=== PATIENT | male | born 1955 | race Caucasian/White ===

== ENCOUNTER 2023-12-31 11:55 | Emergency (ER) | payer MEDICARE ==
[2023-12-31] MEDS ORDERED: Sodium Chloride 0.9% 10 ML Syringe FLUSH PRN ×2 (12:20→13:49)
[2023-12-31 12:37] LABS: BASOPHILS ABSOLUTE AUTO 0.1 K/mm3 (0.0-0.2); BASOPHILS PERCENT AUTO 1.9 % (0.0-1.0); EOSINOPHILS ABSOLUTE AUTO 0.2 K/mm3 (0.0-0.4); EOSINOPHILS PERCENT AUTO 3.6 % (0.0-6.0); HEMATOCRIT 48.3 % (42.0-52.0); HEMOGLOBIN 16.4 gm/dl (14.0-18.0); IMMATURE GRAN ABSOLUTE AUTO 0.01 K/mm3 (0.00-0.05); IMMATURE GRAN PERCENT AUTO 0.2 % (0.0-0.4); LYMPHOCYTES ABSOLUTE AUTO 1.4 K/mm3 (1.0-4.8); LYMPHOCYTES PERCENT AUTO 21.3 % (24.0-44.0); MEAN CORPUSCULAR HEMOGLOBIN 33.8 pg (28.0-32.0); MEAN CORPUSCULAR VOLUME 99.6 fl (83.0-99.0); MEAN PLATELET VOLUME 9.5 fl (9.4-12.4); MONOCYTES ABSOLUTE AUTO 0.5 K/mm3 (0.0-0.8); MONOCYTES PERCENT AUTO 8.4 % (0.0-8.0); NEUTROPHILS ABSOLUTE AUTO 4.2 K/mm3 (1.8-7.7); NEUTROPHILS PERCENT AUTO 64.6 % (41.0-71.0); PLATELET COUNT,PLT 231 K/mm3 (150-400); RED BLOOD CELL COUNT 4.85 M/mm3 (4.52-5.90); WHITE BLOOD CELL COUNT,WBC 6.44 K/mm3 (3.9-11.3)
[2023-12-31 13:17] LABS: ALBUMIN 3.6 g/dl (3.4-5.0); ANION GAP 13.1 (5-15); BILIRUBIN TOTAL 0.4 mg/dL (0.2-1.0); EST CRCL DRUG DOSING (CG) 66.1 mL/min; POTASSIUM,K 4.1 mEq/L (3.5-5.1); PROTEIN TOTAL,TP 7.4 g/dl (6.4-8.2)
[2023-12-31 13:19] LABS: LACTIC ACID 1.7 mmol/L (0.4-2.0)
[2023-12-31] MEDS ORDERED: Iopamidol 755 MG/ML 50 ML Bottle IVPUSH ONE (13:49)
[2023-12-31] MEDS ORDERED: Iopamidol 755 Mg/ML 100 ML Bottle IVPUSH ONE (13:49)
[2023-12-31] MEDS ORDERED: Sodium Chloride 0.9% 100 ML IV SCH (14:00)
[2023-12-31] MEDS: Heparin Sodium 5,000 Units/ML Vial IVPUSH ONE (16:25)
[2023-12-31] MEDS: Heparin Sodium/D5W 25,000 UNITS/500 ML BAG IV SCH (16:33)
== END 2023-12-31 17:50 ==
LOC: JD.ED 11:55
DX: I73.9 Peripheral vascular disease, unspecified (principal); I82.412 Acute embolism and thrombosis of left femoral vein; F17.210 Nicotine dependence, cigarettes, uncomplicated
CPT/HCPCS: 36415; 75635; 80053; 83605; 85025; 85730; 93926; 93971; 96365; 99285; J1644

== ENCOUNTER 2025-02-13 15:02 | Emergency (ER) | payer MEDICARE ==
[2025-02-13] MEDS: methylPREDNISolone Sodium Succinate 125 MG/2 ML SDV IVPUSH ONE (15:30)
[2025-02-13 15:43] LABS: BASOPHILS ABSOLUTE AUTO 0.1 K/mm3 (0.0-0.2); BASOPHILS PERCENT AUTO 1.8 % (0.0-1.0); EOSINOPHILS ABSOLUTE AUTO 0.3 K/mm3 (0.0-0.4); HEMATOCRIT 50.6 % (42.0-52.0); HEMOGLOBIN 16.6 gm/dl (14.0-18.0); IMMATURE GRAN ABSOLUTE AUTO 0.06 K/mm3 (0.00-0.05); IMMATURE GRAN PERCENT AUTO 0.9 % (0.0-0.4); LYMPHOCYTES PERCENT AUTO 15.5 % (24.0-44.0); MEAN CORPUSCULAR HEMOGLOBIN 35.5 pg (28.0-32.0); MEAN CORPUSCULAR HGB CONC 32.8 g/dl (32.0-36.0); MEAN CORPUSCULAR VOLUME 108.4 fl (83.0-99.0); MEAN PLATELET VOLUME 9.6 fl (9.4-12.4); MONOCYTES ABSOLUTE AUTO 0.7 K/mm3 (0.0-0.8); MONOCYTES PERCENT AUTO 11.1 % (0.0-8.0); NEUTROPHILS ABSOLUTE AUTO 4.4 K/mm3 (1.8-7.7); NEUTROPHILS PERCENT AUTO 65.7 % (41.0-71.0); PLATELET COUNT,PLT 277 K/mm3 (150-400); RED BLOOD CELL COUNT 4.67 M/mm3 (4.52-5.90); WHITE BLOOD CELL COUNT,WBC 6.65 K/mm3 (3.9-11.3)
[2025-02-13] MEDS: Albuterol/Ipratropium 3.0-0.5 MG/3 ML Neb Soln NEB ONE ×3 (15:45→18:18)
[2025-02-13 15:50] LABS: INR 0.93; PROTHROMBIN TIME 9.9 SECONDS (9.7-12.0)
[2025-02-13 15:52] LABS: PTT,PARTIAL THROMBOPLSTIN TIME 25.1 SECONDS (21.7-31.4)
[2025-02-13 15:58] LABS: LACTIC ACID 3.4 mmol/L (0.4-2.0)
[2025-02-13 16:00] LABS: A/G RATIO 0.8 (1-2); ALBUMIN 3.6 g/dl (3.4-5.0); ANION GAP 13.3 (5-15); BILIRUBIN TOTAL 0.6 mg/dL (0.2-1.0); BUN/CREATININE RATIO 6.7 (14-18); CALCIUM 9.3 mg/dL (8.5-10.1); CREATININE 0.9 mg/dL (0.7-1.3); EST CRCL DRUG DOSING (CG) 71.4 mL/min; POTASSIUM,K 4.3 mEq/L (3.5-5.1); PROTEIN TOTAL,TP 8.1 g/dl (6.4-8.2)
[2025-02-13] MEDS: Sodium Chloride 0.9% 1,000 ML IV ONE (16:10)
[2025-02-13] MEDS: Sodium Chloride 0.9% 100 ML IV SCH (16:51)
[2025-02-13] MEDS: Iopamidol 755 Mg/ML 100 ML Bottle IVPUSH ONE (16:52)
== END 2025-02-13 19:35 | disposition home or self-care (01) ==
LOC: JD.ED 15:02
DX: J44.1 Chronic obstructive pulmonary disease with (acute) exacerbation (principal); I25.2 Old myocardial infarction; E78.00 Pure hypercholesterolemia, unspecified; I10 Essential (primary) hypertension; Z79.51 Long term (current) use of inhaled steroids; Z95.5 Presence of coronary angioplasty implant and graft
CPT/HCPCS: 36415; 71045; 71275; 80053; 83605; 83880; 84484; 85025; 85610; 85730; 93005; 94640; 96361; 96374; 99285; A9270; J2919; J7030; Q9967; 93010; 99284

== ENCOUNTER 2025-05-21 16:00 | Emergency (ER) | payer MEDICARE ==
[2025-05-21] MEDS ORDERED: Sodium Chloride 0.9% 10 ML Syringe FLUSH PRN (16:13)
[2025-05-21 17:06] LABS: BASOPHILS ABSOLUTE AUTO 0.1 K/mm3 (0.0-0.2); BASOPHILS PERCENT AUTO 1.0 % (0.0-1.0); EOSINOPHILS ABSOLUTE AUTO 0.1 K/mm3 (0.0-0.4); EOSINOPHILS PERCENT AUTO 0.6 % (0.0-6.0); IMMATURE GRAN ABSOLUTE AUTO 0.04 K/mm3 (0.00-0.05); IMMATURE GRAN PERCENT AUTO 0.5 % (0.0-0.4); LYMPHOCYTES ABSOLUTE AUTO 0.8 K/mm3 (1.0-4.8); LYMPHOCYTES PERCENT AUTO 9.3 % (24.0-44.0); MEAN PLATELET VOLUME 9.2 fl (9.4-12.4); MONOCYTES ABSOLUTE AUTO 0.5 K/mm3 (0.0-0.8); MONOCYTES PERCENT AUTO 5.9 % (0.0-8.0); NEUTROPHILS ABSOLUTE AUTO 6.9 K/mm3 (1.8-7.7); NEUTROPHILS PERCENT AUTO 82.7 % (41.0-71.0); NRBC ABSOLUTE 0.00 (0.00-0.02); NRBC PERCENT 0.0 % (0.0-0.2); PLATELET COUNT,PLT 225 K/mm3 (150-400); RED BLOOD CELL COUNT 4.38 M/mm3 (4.52-5.90); WHITE BLOOD CELL COUNT,WBC 8.29 K/mm3 (3.9-11.3)
[2025-05-21 17:27] LABS: A/G RATIO 0.8 (1-2); ALANINE AMINOTRANSFERASE,ALT 19.0 U/L (16-63); ASPARTATE AMNIOTRANSFERASE,AST 18.0 U/L (15-37); BILIRUBIN TOTAL 1.0 mg/dL (0.2-1.0); BLOOD UREA NITROGEN,BUN 3.0 mg/dL (7-18); CARBON DIOXIDE,CO2 28.0 mEq/L (21-32); CHLORIDE,CL 98.0 mEq/L (98-107); CREATININE 0.9 mg/dL (0.7-1.3); EST CRCL DRUG DOSING (CG) 71.4 mL/min; ESTIMATED GFR 92.0 mL/min (>60); GLUCOSE RANDOM 146.0 mg/dL (70-99); POTASSIUM,K 3.9 mEq/L (3.5-5.1); PROTEIN TOTAL,TP 7.1 g/dl (6.4-8.2); SODIUM,NA 134.0 mEq/L (136-145)
[2025-05-21] MEDS: Acetaminophen/HYDROcodone 325-5 MG Tab PO ONE ×2 (17:52→22:52)
[2025-05-21] MEDS: Iopamidol 755 Mg/ML 100 ML Bottle IVPUSH ONE ×2 (20:02)
[2025-05-21] MEDS: Heparin Sodium 5,000 Units/ML Vial IVPUSH ONE (21:43)
[2025-05-21] MEDS: Heparin Sodium/D5W 250 ML IV SCH (21:44)
[2025-05-21 22:01] LABS: INR 1.04
[2025-05-21 22:02] LABS: PTT,PARTIAL THROMBOPLSTIN TIME 26.0 SECONDS (21.7-31.4)
== END 2025-05-22 00:30 ==
LOC: JD.ED 16:00
DX: T82.898A Other specified complication of vascular prosthetic devices, implants and grafts, initial encounter (principal); I73.9 Peripheral vascular disease, unspecified; R26.89 Other abnormalities of gait and mobility; I10 Essential (primary) hypertension; I25.2 Old myocardial infarction; E78.00 Pure hypercholesterolemia, unspecified; F17.200 Nicotine dependence, unspecified, uncomplicated; Z79.899 Other long term (current) drug therapy; Z90.49 Acquired absence of other specified parts of digestive tract; Y83.8 Other surgical procedures as the cause of abnormal reaction of the patient, or of later complication, without mention of misadventure at the time of the procedure
CPT/HCPCS: 36415; 75635; 80053; 83605; 85025; 85610; 85730; 93926; 93970; 96365; 96366; 99285; A9270; J1644; Q9967

== ENCOUNTER 2025-06-07 15:01 | Emergency (ER) | payer MEDICARE ==
[2025-06-07] MEDS: Sodium Chloride 0.9% 10 ML Syringe FLUSH PRN ×2 (15:55→15:56)
[2025-06-07 15:56] LABS: BASOPHILS ABSOLUTE AUTO 0.1 K/mm3 (0.0-0.2); BASOPHILS PERCENT AUTO 0.4 % (0.0-1.0); EOSINOPHILS ABSOLUTE AUTO 0.0 K/mm3 (0.0-0.4); EOSINOPHILS PERCENT AUTO 0.2 % (0.0-6.0); IMMATURE GRAN ABSOLUTE AUTO 0.16 K/mm3 (0.00-0.05); IMMATURE GRAN PERCENT AUTO 0.9 % (0.0-0.4); LYMPHOCYTES ABSOLUTE AUTO 0.4 K/mm3 (1.0-4.8); LYMPHOCYTES PERCENT AUTO 2.5 % (24.0-44.0); MEAN PLATELET VOLUME 9.3 fl (9.4-12.4); MONOCYTES ABSOLUTE AUTO 1.3 K/mm3 (0.0-0.8); MONOCYTES PERCENT AUTO 7.4 % (0.0-8.0); NEUTROPHILS ABSOLUTE AUTO 14.9 K/mm3 (1.8-7.7); NEUTROPHILS PERCENT AUTO 88.6 % (41.0-71.0); NRBC ABSOLUTE 0.00 (0.00-0.02); NRBC PERCENT 0.0 % (0.0-0.2); PLATELET COUNT,PLT 371 K/mm3 (150-400); RED BLOOD CELL COUNT 3.98 M/mm3 (4.52-5.90); WHITE BLOOD CELL COUNT,WBC 16.86 K/mm3 (3.9-11.3)
[2025-06-07 16:22] LABS: A/G RATIO 0.5 (1-2); ALANINE AMINOTRANSFERASE,ALT 45.0 U/L (16-63); ASPARTATE AMNIOTRANSFERASE,AST 98.0 U/L (15-37); BILIRUBIN TOTAL 0.8 mg/dL (0.2-1.0); BLOOD UREA NITROGEN,BUN 30.0 mg/dL (7-18); CARBON DIOXIDE,CO2 24.0 mEq/L (21-32); CHLORIDE,CL 87.0 mEq/L (98-107); CREATININE 2.9 mg/dL (0.7-1.3); EST CRCL DRUG DOSING (CG) 22.11 mL/min; ESTIMATED GFR 23.0 mL/min (>60); GLUCOSE RANDOM 135.0 mg/dL (70-99); INR 1.11; POTASSIUM,K 3.4 mEq/L (3.5-5.1); PROTEIN TOTAL,TP 6.9 g/dl (6.4-8.2); SODIUM,NA 123.0 mEq/L (136-145); TROPONIN I HIGH SENSITIVITY 14.0 pg/mL (<=76)
[2025-06-07 16:24] LABS: PTT,PARTIAL THROMBOPLSTIN TIME 27.9 SECONDS (21.7-31.4)
[2025-06-07] MEDS: VANCOmycin 1.75 GM/350 ML 1.75 GM in Premix Bag 1 BAG IV ONE (17:05)
[2025-06-07] MEDS: Lactated Ringers 1,000 ML IV ONE (17:23)
[2025-06-07] MEDS ORDERED: Norepinephrine Bit/0.9% NaCl 4 MG/250 ML BAG IV SCH (17:30)
[2025-06-07] MEDS ORDERED: Lactated Ringers 1,000 ML IV SCH (18:45)
== END 2025-06-07 19:20 ==
LOC: JD.ED 15:01
DX: A41.9 Sepsis, unspecified organism (principal); T82.898A Other specified complication of vascular prosthetic devices, implants and grafts, initial encounter; L03.116 Cellulitis of left lower limb; E86.0 Dehydration; I25.10 Atherosclerotic heart disease of native coronary artery without angina pectoris; I10 Essential (primary) hypertension; I25.2 Old myocardial infarction; Z90.49 Acquired absence of other specified parts of digestive tract; Z95.5 Presence of coronary angioplasty implant and graft; E78.00 Pure hypercholesterolemia, unspecified; Z79.899 Other long term (current) drug therapy
CPT/HCPCS: 36415; 71045; 80053; 83605; 83735; 84484; 85025; 85610; 85730; 86140; 87040; 93005; 94762; 96360; 96361; 96365; 96366; 96375; 99285; J0696; J3375; J7030; J7120; 93010

== ENCOUNTER 2025-08-06 16:10 | Emergency (ER) | payer MEDICARE ==
[2025-08-06] MEDS ORDERED: Sodium Chloride 0.9% 10 ML Syringe FLUSH PRN (16:33)
[2025-08-06 16:56] LABS: BASOPHILS ABSOLUTE AUTO 0.1 K/mm3 (0.0-0.2); BASOPHILS PERCENT AUTO 1.1 % (0.0-1.0); EOSINOPHILS ABSOLUTE AUTO 0.3 K/mm3 (0.0-0.4); EOSINOPHILS PERCENT AUTO 4.6 % (0.0-6.0); IMMATURE GRAN ABSOLUTE AUTO 0.04 K/mm3 (0.00-0.05); IMMATURE GRAN PERCENT AUTO 0.6 % (0.0-0.4); LYMPHOCYTES ABSOLUTE AUTO 0.9 K/mm3 (1.0-4.8); LYMPHOCYTES PERCENT AUTO 13.0 % (24.0-44.0); MEAN PLATELET VOLUME 9.7 fl (9.4-12.4); MONOCYTES ABSOLUTE AUTO 0.8 K/mm3 (0.0-0.8); MONOCYTES PERCENT AUTO 10.4 % (0.0-8.0); NEUTROPHILS ABSOLUTE AUTO 5.1 K/mm3 (1.8-7.7); NEUTROPHILS PERCENT AUTO 70.3 % (41.0-71.0); NRBC ABSOLUTE 0.00 (0.00-0.02); NRBC PERCENT 0.0 % (0.0-0.2); PLATELET COUNT,PLT 372 K/mm3 (150-400); RED BLOOD CELL COUNT 3.46 M/mm3 (4.52-5.90); WHITE BLOOD CELL COUNT,WBC 7.24 K/mm3 (3.9-11.3)
[2025-08-06 17:21] LABS: A/G RATIO 0.7 (1-2); ALANINE AMINOTRANSFERASE,ALT 47.0 U/L (16-63); ASPARTATE AMNIOTRANSFERASE,AST 24.0 U/L (15-37); BILIRUBIN TOTAL 0.4 mg/dL (0.2-1.0); BLOOD UREA NITROGEN,BUN 11.0 mg/dL (7-18); CARBON DIOXIDE,CO2 28.0 mEq/L (21-32); CHLORIDE,CL 101.0 mEq/L (98-107); CREATININE 0.9 mg/dL (0.7-1.3); EST CRCL DRUG DOSING (CG) 71.05 mL/min; ESTIMATED GFR 92.0 mL/min (>60); GLUCOSE RANDOM 117.0 mg/dL (70-99); POTASSIUM,K 4.1 mEq/L (3.5-5.1); PROTEIN TOTAL,TP 7.0 g/dl (6.4-8.2); SODIUM,NA 136.0 mEq/L (136-145)
[2025-08-06 17:27] LABS: LACTIC ACID 1.2 mmol/L (0.4-2.0)
[2025-08-06 18:02] LABS: APPEARANCE,URINE CLEAR (Clear); GLUCOSE,URINE NEGATIVE (Negative); OCCULT BLOOD,URINE 2+ (Negative)
[2025-08-06 18:11] LABS: EPITHELIAL CELLS,URINE 0-5 /hpf (0-5)
== END 2025-08-06 20:15 | disposition home or self-care (01) ==
LOC: JD.ED 16:10
DX: S81.802D Unspecified open wound, left lower leg, subsequent encounter (principal); I10 Essential (primary) hypertension; E78.00 Pure hypercholesterolemia, unspecified; Z79.899 Other long term (current) drug therapy; Z90.49 Acquired absence of other specified parts of digestive tract; Z89.612 Acquired absence of left leg above knee
CPT/HCPCS: 36415; 80053; 81001; 83605; 83735; 85025; 85652; 86140; 99285; A9270